=== PATIENT | female | born 1945 | race Caucasian/White ===

== ENCOUNTER 2022-06-19 06:21 | Day surgery (SDC) | payer MEDICARE, MEDICAID ==
[2022-06-13 10:57] LABS: BASOPHILS # (AUTO) 0.1 X10'3 (0-0.2); BASOPHILS % (AUTO) 0.9 % (0-1); EOSINOPHILS # (AUTO) 0.4 X10'3 (0-0.9); EOSINOPHILS % (AUTO) 4.2 % (0-6); HEMATOCRIT 46.9 % (35.0-45.0); HEMOGLOBIN 16.4 g/dl (12.0-16.0); LYMPHOCYTES # (AUTO) 2.4 X10'3 (1.1-4.8); LYMPHOCYTES % (AUTO) 23.4 % (21-51); MEAN CORPUSCULAR HEMOGLOBIN 33.8 PG (27.0-31.0); MEAN CORPUSCULAR HGB CONC 34.9 g/dL (33.0-36.5); MEAN PLATELET VOLUME 8.8 FL (7.4-10.4); MONOCYTES # (AUTO) 0.6 X10'3 (0-0.9); MONOCYTES % (AUTO) 5.5 % (2-12); NEUTROPHILS # (AUTO) 6.8 X10'3 (1.8-7.7); PLATELET COUNT 266 X10'3 (140-440); RED BLOOD COUNT 4.83 X10'6 (4.20-5.60); RED CELL DISTRIBUTION WIDTH 14.1 % (11.5-14.5); WHITE BLOOD COUNT 10.3 X10'3 (4.5-11.0)
[2022-06-13 11:07] LABS: ALANINE AMINOTRANSFERASE 23 U/L (12-78); ALBUMIN 4.2 G/DL (3.4-5.0); ALBUMIN/GLOBULIN RATIO 1.2 (1.1-1.5); ALKALINE PHOSPHATASE 91 IU/L (46-116); ANION GAP 6 (8-16); ASPARTATE AMINO TRANSFERASE 30 U/L (10-37); BILIRUBIN,TOTAL 0.8 MG/DL (0.1-1.0); BLOOD UREA NITROGEN 22 MG/DL (7-18); BUN/CREATININE RATIO 13.8 (6.6-38.0); CHLORIDE 97 MMOL/L (99-107); CREATININE 1.59 MG/DL (0.40-0.90); GLUCOSE 124 MG/DL (70-104); SODIUM 141 MMOL/L (135-145); TOTAL CARBON DIOXIDE 37.6 MMOL/L (24-32); TOTAL PROTEIN 7.8 G/DL (6.4-8.2); eGFR 32 ML/MIN
[2022-06-13 11:13] LABS: POTASSIUM 2.9 MMOL/L (3.5-5.1)
[2022-06-19] VITALS (13 sets, daily range): BP systolic 126–153; BP diastolic 57–74
[~2022-06-19] VITALS: Ht 152.4 cm; Wt 67.2 kg
[~2022-06-19 06:21] MED LIST: ATOR10TA87 PO; BUPR-297 PO; CYCL5TAB PO; DILT-91 PO; DOCUMENT DATE & TIME OF BETA-BLOCKER PO ONE; FURO20TA4 PO; HYDR12.55 PO; METO-384 PO; NAPR-996 PO; ceFAZolin inj. 2,000 MG in dextrose 5%-water 100 ML IV ONE; famotidine 20mg tablet PO ONE; ringers solution, lacted 1,000 ML IV SCH
[2022-06-19] MEDS ORDERED: BUPIVAcaine/PF 2.5 mg/ml (0.25%) 30ml vial ONE (06:46)
[2022-06-19] MEDS ORDERED: BUPIVAcaine/PF 2.5mg/ml (0.25%) 10ml vial ONE (06:59)
[2022-06-19] MEDS ORDERED: LIDOcaine 0.5% (5mg/ml) 50ml vial ONE (07:17)
[2022-06-19 08:20] LABS: ISTAT CREATININE 1.4 mg/dL (0.6-1.1); ISTAT HGB 14.6 g/dl (12.0-16.0); ISTAT IONIZED CALCIUM 1.27 mmol/L (1.03-1.32); ISTAT K 3.5 mmol/L (3.5-5.1); POC BUN/CREATININE RATIO 16.4 (6.6-38.0)
[2022-06-19] MEDS ORDERED: morphine 2 MG/ML inj. syringe IV PRN (08:20)
[2022-06-19] MEDS ORDERED: ringers solution, lacted 1,000 ML IV SCH (08:20)
[2022-06-19] MEDS ORDERED: morphine 4 MG/ML inj SYRINge IV PRN (08:20)
[2022-06-19] MEDS ORDERED: fentaNYL/PF 50MCG/1 ML 2ML syringe IV PRN ×2 (08:20)
[2022-06-19] MEDS ORDERED: labetalol 20mg/4ml (5mg/ml) syringe IV PRN (08:20)
[2022-06-19] MEDS ORDERED: hydrALAZINE 20mg/ml inj. IV PRN (08:20)
[2022-06-19] MEDS ORDERED: ondansetron/PF 4mg/2ml inj IV PRN (08:20)
[2022-06-19] MEDS ORDERED: fentaNYL/PF 50MCG/1 ML 2ML syringe ONE (09:56)
[2022-06-19] MEDS ORDERED: midazolam 1 mg/ML 2ml injection ONE (10:02)
--- NOTE | 2022-06-19 10:13 | NUR ---
Received from OR via BED, accompanied by Anesthesiologist DR MARTINES and report given by Anesthesiologist AND BULLET ASSEMBLY PRESS SETTER OPERATOR. PT VERY DROWSY, NO S/S OF DISTRESS/DISCOMFORT. LEFT HAND W/ALEXANDRA WRAP COVERING CDI. FINGERS PWD, PHARMACY PICKING TECH 1-2 SECONDS. Addendum: 06/19/22 at 1027 by Kendra Lott RN Amended: Links added.
--- NOTE | 2022-06-19 12:03 | NUR ---
PT UP AND ABLE TO AMBULATE SAFELY, VOID X 1. D/C INSTRUCTIONS GIVEN AND GONE OVER W/PT WHO VERBALIZED UNDERSTANDING. PT D/CD TO HOME VIA W/C TO PRIVATE VEHICLE W/O INCIDENT. Addendum: 06/19/22 at 1214 by Kendra Lott RN Amended: Links added.
== END 2022-06-19 12:03 | disposition home or self-care (01) ==
LOC: PAS 06:21
PROVIDERS: ATTEND Orthopaedic Surgery Hand Surgery
DX: G56.02 Carpal tunnel syndrome, left upper limb (principal); F17.210 Nicotine dependence, cigarettes, uncomplicated; F41.9 Anxiety disorder, unspecified; Z79.899 Other long term (current) drug therapy; Z98.890 Other specified postprocedural states
CPT/HCPCS: 36415; 64721; 80047; 80053; 85025; 93005; J0690; J2250; J3010; J3490; J7030; J7060; J7120; Z7506; Z7512; A4215